=== PATIENT | female | born 1980 | race Caucasian/White ===

== ENCOUNTER 2022-03-05 15:28 | Observation (INO) | payer BC, OTHER ==
[~2022-03-05] VITALS: Ht 165.1 cm; Wt 93.0 kg
[~2022-03-05 15:28] MED LIST: ONDANSETRON 4MG 2ML VIAL IV PRN
[2022-03-05] MEDS ORDERED: CLINDAMYCIN 900 MG in IV 1 EA IV ONE (15:40)
[2022-03-05] MEDS ORDERED: CEPH500C (16:06)
[2022-03-05] MEDS ORDERED: DRIS50003 PO (16:07)
[2022-03-05] MEDS ORDERED: LEXA1TAB (16:07)
[2022-03-05] MEDS ORDERED: FOLTTAB9 PO (16:08)
[2022-03-05] MEDS ORDERED: ACET-907 PO (16:09)
[2022-03-05] MEDS ORDERED: HEPARIN SOD (PORCINE) 5000UNITS/ML 1ML VIAL/SYRINGE SQ ONE (16:30)
[2022-03-05] MEDS ORDERED: diphenhydrAMINE 50MG/ML VIAL IV PRN (17:00)
[2022-03-05] MEDS ORDERED: ceFAZolin 1GM VIAL (J0690 PER 500MG) As Ordered ONE (17:25)
[2022-03-05 18:05] LABS: HEMATOCRIT 42.6 % (36.0-47.0); HEMOGLOBIN 13.8 g/dl (12.0-15.5); MEAN CORPUSCULAR HEMOGLOBIN 27.7 pg (27.0-33.0); MEAN CORPUSCULAR HGB CONC 32.4 g/dl (32.0-36.5); MEAN CORPUSCULAR VOLUME 85.5 fl (80.0-96.0); PLATELET COUNT, AUTOMATED 305 10^3/uL (150-450); RED BLOOD COUNT 4.98 10^6/uL (4.00-5.40); WHITE BLOOD COUNT 18.1 10^3/uL (4.0-10.0)
[2022-03-05] MEDS ORDERED: ONDANSETRON 4MG 2ML VIAL As Ordered ONE (18:20)
[2022-03-05] MEDS ORDERED: MIDAZOLAM INJ 2MG/2ML VIAL (J2250 PER 1MG) As Ordered ONE (18:20)
[2022-03-05] MEDS ORDERED: ACETAMINOPHEN 1000MG 100ML IV BAG As Ordered ONE (18:20)
[2022-03-05] MEDS ORDERED: propofoL 200 MG/20 ML VIAL As Ordered ONE (18:20)
[2022-03-05] MEDS ORDERED: dexameTHASONE 4 MG/ML 1ML VIAL (J1100 PER 1MG) As Ordered ONE (18:20)
[2022-03-05] MEDS ORDERED: fentaNYL 100 MCG/2 ML INJECTION As Ordered ONE (18:20)
[2022-03-05] MEDS ORDERED: LIDOCAINE 1% SDV 30ML VIAL As Ordered ONE (18:20)
[2022-03-05] MEDS ORDERED: BUPIVACAINE HCL 0.5% 30ML VIAL As Ordered ONE (18:20)
[2022-03-05] MEDS ORDERED: BUPIVACAINE HCL 0.25% 30ML VIAL As Ordered ONE (18:21)
[2022-03-05] MEDS ORDERED: LR 1,000 ML IV SCH (18:45)
[2022-03-05] MEDS ORDERED: oxyCODONE 5MG TAB PO PRN (18:45)
[2022-03-05] MEDS ORDERED: fentaNYL 100 MCG/2 ML INJECTION IV PRN (18:45)
[2022-03-05] MEDS ORDERED: MORPHINE 2 MG/ML 1ML VIAL IV PRN ×2 (18:45→19:05)
[2022-03-05] MEDS ORDERED: ONDANSETRON 4MG 2ML VIAL IV PRN (18:45)
[2022-03-05 19:02] LABS: BLOOD UREA NITROGEN 15 MG/DL (9-23); CALCIUM LEVEL 9.6 MG/DL (8.5-10.1); CARBON DIOXIDE LEVEL 22 MMOL/L (20-31); CHLORIDE LEVEL 104 MMOL/L (98-107); CREATININE FOR GFR 0.67 MG/DL (0.55-1.30); GLOMERULAR FILTRATION RATE > 60.0 (>58); GLUCOSE, FASTING 83 MG/DL (60-100); POTASSIUM SERUM 3.8 MMOL/L (3.5-5.1); SODIUM LEVEL 139 MMOL/L (136-145)
[2022-03-05] MEDS ORDERED: ACETAMINOPHEN 500 MG TAB PO PRN (19:05)
[2022-03-05] MEDS ORDERED: METOCLOPRAMIDE INJ 10MG/2ML VIAL (J2765 PER 1) IV PRN (19:05)
[2022-03-05 20:15] VITALS: BP 110/72
[2022-03-05 20:46] VITALS: BP 114/73
[2022-03-05 21:16] VITALS: BP 109/69
[2022-03-05] MEDS: LR 1,000 ML IV SCH (21:17)
[2022-03-05] MEDS: HEPARIN SOD (PORCINE) 5000UNITS/ML 1ML VIAL/SYRINGE SQ SCH (21:17)
[2022-03-05] MEDS: traMADol 50 MG TAB PO PRN (21:21)
[2022-03-05 22:35] VITALS: BP 112/67
[2022-03-05 23:58] VITALS: BP 115/69
[2022-03-06 01:06] VITALS: BP 116/70
[2022-03-06] MEDS: CLINDAMYCIN 900 MG in IV 1 EA IV SCH ×2 (01:22→09:37)
[2022-03-06 02:14] VITALS: BP 110/66
[2022-03-06] MEDS: LR 1,000 ML IV SCH ×2 (02:30→08:33)
[2022-03-06 06:00] LABS: HEMATOCRIT 38.8 % (36.0-47.0); HEMOGLOBIN 12.6 g/dl (12.0-15.5); MEAN CORPUSCULAR HEMOGLOBIN 27.8 pg (27.0-33.0); MEAN CORPUSCULAR HGB CONC 32.5 g/dl (32.0-36.5); MEAN CORPUSCULAR VOLUME 85.5 fl (80.0-96.0); PLATELET COUNT, AUTOMATED 279 10^3/uL (150-450); RED BLOOD COUNT 4.54 10^6/uL (4.00-5.40); WHITE BLOOD COUNT 14.4 10^3/uL (4.0-10.0)
[2022-03-06 06:07] VITALS: BP 111/67
[2022-03-06] MEDS: HEPARIN SOD (PORCINE) 5000UNITS/ML 1ML VIAL/SYRINGE SQ SCH (06:30)
[2022-03-06] MEDS: traMADol 50 MG TAB PO PRN (06:31)
[2022-03-06 10:00] VITALS: BP 111/66
[2022-03-06] MEDS ORDERED: TRAM50TA2 PO (11:31)
[2022-03-06] MEDS ORDERED: CLIN-250 PO (11:31)
== END 2022-03-06 12:20 | disposition home or self-care (01) ==
LOC: M SDC 15:28 → M ED INP 15:32 → M MS5PR 20:00
PROVIDERS: ADMIT Surgery; ATTEND Surgery
DX: N61.1 Abscess of the breast and nipple (principal); F41.9 Anxiety disorder, unspecified; F32.A Depression, unspecified; D64.9 Anemia, unspecified; K21.9 Gastro-esophageal reflux disease without esophagitis; M19.90 Unspecified osteoarthritis, unspecified site; Z79.899 Other long term (current) drug therapy; Z79.2 Long term (current) use of antibiotics; F17.200 Nicotine dependence, unspecified, uncomplicated
CPT/HCPCS: 19020; 36415; 80048; 85027; 87070; 87075; 87076; 87077; 87205; 87635; 96365; 96366; 96372; J0131; J1100; J1200; J1644; J2250; J2405; J3010